=== PATIENT | female | born 1950 | race Caucasian/White ===

== ENCOUNTER 2019-07-25 01:03 | Outpatient (CLI) | payer MEDICARE, SELFPAY ==
--- NOTE | 2019-07-25 07:45 | DI.MAMMO_ITS ---
EXAM: MAMMO SCREENING CLINICAL HISTORY: Screening, Z12.39. TECHNIQUE: Mammograms were interpreted according to the usual protocol including computer analysis with CAD system, tomosynthesis and C-view imaging. COMPARISON: June 2017 FINDINGS: The breasts are of moderate density with fairly symmetrical distribution of fibroglandular tissue. No dominant mass or clumped microcalcification is identified in either breast. Current examination is c ompared with previous examinations including June 2017 and there has been no gross interval soto ge in appearance comparison with previous studies. IMPRESSION: No specific evidence of malignancy at this time. Routine screening examinations are suggested at year ly intervals due to the family history of breast carcinoma, category 1, breast density category B. BI-RADS Cat 1 - Negative Breast Density - Category B - Scattered areas of fibroglandular density
[2019-07-25 09:05] LABS: ALT 18 U/L (14-59); AST 15 U/L (15-37); Albumin 3.5 g/dL (3.4-5.0); Alkaline Phosphatase 99 U/L (46-116); BUN 16 mg/dL (7-18); Bilirubin, Total 0.7 mg/dL (0.2-1.0); CREATININE 1.04 mg/dL (0.55-1.02); Calcium 8.9 mg/dL (8.5-10.1); Chloride 106 mmol/L (98-107); Estimated GFR 53.02 (mL/min/1.73m2); Glucose 101 mg/dL (70-100); Sodium 146 mmol/L (136-145); Total Protein 7.1 g/dL (6.4-8.2)
== END 2019-07-25 01:23 ==
DX: E03.9 Hypothyroidism, unspecified; E66.9 Obesity, unspecified; I10 Essential (primary) hypertension; M50.10 Cervical disc disorder with radiculopathy, unspecified cervical region; Z12.31 Encounter for screening mammogram for malignant neoplasm of breast; Z80.3 Family history of malignant neoplasm of breast
CPT/HCPCS: 36415; 77063; 77067; 80053

== ENCOUNTER 2020-06-23 04:21 | Outpatient (CLI) | payer MEDICARE, MEDICAID, SELFPAY ==
[2020-06-23 08:51] LABS: ALT 21 U/L (14-59); AST 11 U/L (15-37); Albumin 3.5 g/dL (3.4-5.0); Alkaline Phosphatase 90 U/L (46-116); Anion Gap 7.2 mmol/L (3-11); BUN 11 mg/dL (7-18); Bilirubin, Total 0.5 mg/dL (0.2-1.0); CO2 29.8 mmol/L (21.0-32.0); CREATININE 0.98 mg/dL (0.55-1.02); Calcium 8.9 mg/dL (8.5-10.1); Chloride 106 mmol/L (98-107); Estimated GFR 56.61 (mL/min/1.73m2); Glucose 93 mg/dL (74-106); Potassium 3.7 mmol/L (3.5-5.1); Sodium 143 mmol/L (136-145); Total Protein 6.9 g/dL (6.4-8.2)
== END 2020-06-23 04:41 ==
DX: I10 Essential (primary) hypertension (principal); I34.0 Nonrheumatic mitral (valve) insufficiency; E66.9 Obesity, unspecified
CPT/HCPCS: 36415; 80053

== ENCOUNTER → 2020-07-09 10:00 | Outpatient (BNVA) | payer MEDICARE, MEDICAID, SELFPAY | PROVIDERS: Visit Provider Student in an Organized Health Care Education/Training Program | DX: M17.12 Unilateral primary osteoarthritis, left knee (principal); M25.562 Pain in left knee; M25.561 Pain in right knee | CPT/HCPCS: 20610; 99203; 99214; J1040 ==

== ENCOUNTER 2021-04-06 13:00 | Outpatient (CLI) | payer OTHER, MEDICAID, SELFPAY ==
--- NOTE | 2021-04-06 10:00 | DI.RAD_ITS ---
Exam(s) XR KNEE LT 3V AP,LAT,LISA EXAM: XR KNEE LT 3V AP,LAT,LISA CLINICAL HISTORY: LT KNEE PAIN, M17.12-PRIMARY OSTEOARTHRITIS OF LT KNEE TECHNIQUE: COMPARISON: CR XR KNEE RT 3V AP,LAT,LISA from 04/06/2021 FINDINGS: Three views were obtained. There is severe narrowing of the medial tibiofemoral cartilaginous joint space. Otherwise the cartilaginous joint spaces appear fairly well maintained. There is a superior patellar enthesophyte. There are moderate hypertrophic marginal osteophytes of medial tibiofemoral j oint mild subchondral sclerosis of adjacent bones at the medial tibiofemoral joint. IMPRESSION: DJD predominantly involving medial tibiofemoral joint. RADIATION DOSE DELIVERED: Total DLP
--- NOTE | 2021-04-06 10:00 | DI.RAD_ITS ---
Exam(s) XR KNEE RT 3V AP,LAT,LISA EXAM: XR KNEE RT 3V AP,LAT,LISA CLINICAL HISTORY: RT KNEE PAIN, M25.561 TECHNIQUE: COMPARISON: CR XR KNEE LT 3V AP,LAT,LISA from 06/29/2020 FINDINGS: Three views were obtained. There is moderate narrowing of the medial tibiofemoral cartilaginous join t space. Lateral tibiofemoral cartilaginous joint space appears fairly well maintained. There are m oderate marginal osteophytes noted at the medial tibiofemoral joint and to a lesser degree at the oth er joints of the knee. No other abnormality seen. IMPRESSION: DJD predominantly involving medial tibiofemoral joint. RADIATION DOSE DELIVERED: Total DLP
== END 2021-04-06 13:20 ==
PROVIDERS: Visit Provider Nurse Practitioner
DX: M17.11 Unilateral primary osteoarthritis, right knee (principal); M17.12 Unilateral primary osteoarthritis, left knee
CPT/HCPCS: 73562

== ENCOUNTER → 2021-05-21 08:47 | Outpatient (BNVA) | payer OTHER, MEDICAID, SELFPAY | PROVIDERS: Referring Provider Nurse Practitioner; Visit Provider Student in an Organized Health Care Education/Training Program | DX: M25.561 Pain in right knee (principal); M23.91 Unspecified internal derangement of right knee; M17.11 Unilateral primary osteoarthritis, right knee | CPT/HCPCS: 20610; J1040 ==

== ENCOUNTER 2021-07-01 14:22 | Outpatient (REF) | payer OTHER, MEDICAID, SELFPAY ==
[2021-07-01 19:25] LABS: ALT 31 U/L (14-59); AST 15 U/L (15-37); Alkaline Phosphatase 107 U/L (46-116); Anion Gap 8.6 mmol/L (3-11); BUN 19 mg/dL (7-18); Bilirubin, Total 0.7 mg/dL (0.2-1.0); CO2 28.4 mmol/L (21.0-32.0); Calcium 9.7 mg/dL (8.5-10.1); Calculated LDL 103 mg/dL (<100); Chloride 107 mmol/L (98-107); Cholesterol 177 mg/dL (<200); Estimated GFR 55.14 (mL/min/1.73m2); Glucose 94 mg/dL (74-106); HDL Cholesterol 58 mg/dL (40-60); Potassium 4.4 mmol/L (3.5-5.1); Sodium 144 mmol/L (136-145); Total Protein 7.5 g/dL (6.4-8.2); Triglyceride 81 mg/dL (<150)
== END 2021-07-01 14:23 | disposition home or self-care (01) ==
LOC: LBN 14:22
DX: E78.5 Hyperlipidemia, unspecified; Z00.00 Encounter for general adult medical examination without abnormal findings
CPT/HCPCS: 80053; 80061

== ENCOUNTER 2022-02-14 01:08 | Outpatient (CLI) | payer MEDICARE, MEDICAID, SELFPAY ==
--- NOTE | 2022-02-14 07:45 | DI.MAMMO_ITS ---
Exam(s) MAMMO SCREENING EXAM: MAMMO SCREENING CLINICAL HISTORY: screening,z12.39 TECHNIQUE: Mammograms were interpreted according to the usual protocol including computer analysis w [employer]ite CAD system, tomosynthesis and C-view imaging. COMPARISON: 2012 through 2018 FINDINGS: The breasts are composed of scattered fibroglandular densities, Breast Density category B. No suspicious masses or suspicious microcalcifications are seen. No skin thickening or abnormal axillary lymph nodes are seen. There has been no significant change from prior exams. IMPRESSION: BI-RADS Category 1, Negative mammogram Yearly screening mammography is recommended. Breast Density - Category B, scattered fibroglandular densities. A negative radiographic report should not delay biopsy if a dominant or clinically suspicious mass is present. Up to ten percent of cancers are not identified on mammography. A negative report may reinforce clinical impression. Adenosis and dense breasts may obscure an underlying neoplasm. False positive reports average 6 to 10%. Patient will receive a letter notifying them of these results.
== END 2022-02-14 01:28 ==
DX: Z12.31 Encounter for screening mammogram for malignant neoplasm of breast (principal)
CPT/HCPCS: 77063; 77067

== ENCOUNTER 2022-02-14 02:10 | Outpatient (CLI) | payer MEDICARE, MEDICAID, SELFPAY ==
[2022-02-14 09:45] LABS: ALT 20 U/L (14-59); AST 15 U/L (15-37); Albumin 3.6 g/dL (3.4-5.0); Alkaline Phosphatase 101 U/L (46-116); Anion Gap 7.1 mmol/L (3-11); BUN 12 mg/dL (7-18); Bilirubin, Total 0.5 mg/dL (0.2-1.0); CO2 29.9 mmol/L (21.0-32.0); Calcium 8.8 mg/dL (8.5-10.1); Calculated LDL 120 mg/dL (<100); Chloride 106 mmol/L (98-107); Cholesterol 187 mg/dL (<200); Estimated GFR 54.97 (mL/min/1.73m2); Glucose 95 mg/dL (74-106); HDL Cholesterol 54 mg/dL (40-60); Sodium 143 mmol/L (136-145); Total Protein 7.2 g/dL (6.4-8.2); Triglyceride 65 mg/dL (<150)
== END 2022-02-14 02:11 | disposition home or self-care (01) ==
LOC: LBO 02:10
DX: I10 Essential (primary) hypertension (principal); E66.9 Obesity, unspecified; M79.605 Pain in left leg; Z00.00 Encounter for general adult medical examination without abnormal findings
CPT/HCPCS: 36415; 80053; 80061

== ENCOUNTER 2022-03-15 02:47 | Outpatient (CLI) | payer MEDICARE, MEDICAID, SELFPAY ==
[2022-03-15 12:15] LABS: TSH (W/Ref FT4) 1.83 uIU/mL (0.36-3.74)
== END 2022-03-15 02:48 | disposition home or self-care (01) ==
LOC: LBO 02:47
DX: G47.00 Insomnia, unspecified (principal)
CPT/HCPCS: 36415; 84443

== ENCOUNTER → 2023-06-05 03:59 | Outpatient (CLI) | payer MEDICARE, SELFPAY ==
--- NOTE | 2023-06-05 07:15 | DI.MAMMO_ITS ---
Exam(s) US BREAST RT LIMITED MG MAMMO DIAGNOSTIC BI EXAM: MG MAMMO DIAGNOSTIC unilateral and U/S breast RT limited CLINICAL HISTORY: new mass, right lateral 11:00,n64.59. TECHNIQUE: Craniocaudal and mediolateral oblique Full Field Digital Mammography views of the right b reast with Computer Aided Diagnosis followed by Tomosynthesis and right breast ultrasound. COMPARISON: Comparison is made with prior examinations. FINDINGS: Mammography/Tomosynthesis: Masses/Architectural Distortion: In the axillary region of the right breast there is a well-circumscr ibed 7 mm nodule present. This corresponds to the palpable abnormality. Microcalcifictions: No suspicious pleomorphic-type are seen. Skin Thickening/Nipple Retraction: None. Limited right breast US: Echotexture: Normal appearance of the glandular tissue. Shadowing: No suspicious foci. Cyst: 10 cm from the nipple at the 11 o'clock position of the axilla there is a well-circumscribed 1 x 0.2 by 0.6 cm cyst. This corresponds to the palpable abnormality and the mammographic abnormality. It is just beneath the skin surface and likely reflects a benign lesion such as a sebaceous cyst. Solid lesions: None seen. Ductal dilation: None. IMPRESSION: 1. No evidence of malignancy is noted. 2. Unless there is more urgent need, follow-up screening mammography is recommended, as per [employer] guidelines. 3. The findings were discussed with the patient on the date of the examination. BI-RADS Category 2 - Benign Findings Breast Density - Category B - Scattered areas of fibroglandular density Breast density Category C or D implies that the patient has dense breast tissue. Dense breast tissue can make it harder to find cancer on a mammogram. Dense breast tissue is also associated with an incr eased risk of breast cancer. This information about the result of the mammogram report was provided to the patient to raise their awareness. Use this report when you speak with the patient about their risks for breast cancer, which includes their family history. At that time, you may recommend additional screening tests (Ultrasoun d or MRI) as these tests may add significant information. A negative radiographic report should not delay biopsy if a dominant or clinically suspicious mass is present. Up to ten percent of cancers are not identified on mammography. A negative report may reinforce clinical impression. Adenosis and dense breasts may obscure an underlying neoplasm. False positive reports average 6 to 10%. Patient will receive a letter notifying them of these results.
== END ==
PROVIDERS: PCP Nurse Practitioner Family; Visit Provider Nurse Practitioner Family
DX: N64.59 Other signs and symptoms in breast (principal); Z12.31 Encounter for screening mammogram for malignant neoplasm of breast; N63.11 Unspecified lump in the right breast, upper outer quadrant
CPT/HCPCS: 76642; 77062; 77066; G0279

== ENCOUNTER 2023-07-07 01:51 | Outpatient (CLI) | payer MEDICARE, SELFPAY ==
[2023-07-07 11:21] LABS: Anion Gap 8.7 mmol/L (3-11); BUN 13 mg/dL (7-18); CO2 27.3 mmol/L (21.0-32.0); CREATININE 1.1 mg/dL (0.55-1.02); Calcium 9.7 mg/dL (8.5-10.1); Chloride 105 mmol/L (98-107); Estimated GFR 54.06 (mL/min/1.73m2); Glucose 98 mg/dL (74-106); Potassium 3.8 mmol/L (3.5-5.1); Sodium 141 mmol/L (136-145)
== END 2023-07-07 01:52 | disposition home or self-care (01) ==
LOC: LBO 01:51
PROVIDERS: PCP Nurse Practitioner Family; Visit Provider Nurse Practitioner Family
DX: I10 Essential (primary) hypertension (principal)
CPT/HCPCS: 36415; 80048

== ENCOUNTER → 2024-03-21 10:09 | Outpatient (BNVA) | payer MEDICARE, SELFPAY | PROVIDERS: PCP Nurse Practitioner Family; Referring Provider Nurse Practitioner Family; Visit Provider Physical Therapy Assistant | DX: Z12.11 Encounter for screening for malignant neoplasm of colon (principal); Z86.010 Personal history of colon polyps ==

== ENCOUNTER 2024-04-01 09:37 | Day surgery (SDC) | payer MEDICARE, SELFPAY ==
--- NOTE | 2024-03-31 18:55 | PDOC.DSDIS_ITS ---
Date of service: 04/01/24 Time of Service: 12:00 Discharge Plan Disposition Patient Disposition: Home Condition: Good Discharge Details Reason For Visit: screening colonoscopy Attending Provider: Christopher Barrera Primary Care Provider: Moshe Yadav Home Meds and New Rx's Prescriptions: Continued turmeric root extract 500 mg capsule 500 mg PO DAILY amlodipine 5 mg tablet 5 mg PO DAILY Qty: 90 4RF diclofenac sodium 75 mg tablet,delayed release (DR/EC) 75 mg PO BID Qty: 180 4RF metoprolol succinate 25 mg tablet extended release 24 hr 25 mg PO DAILY Qty: 90 4RF spironolactone 25 mg tablet 12.5 mg PO DAILY Qty: 90 4RF Rx Instructions: Take 12.5mg in the AM cetirizine [Allergy Relief (cetirizine)] 5 mg tablet 5 mg PO DAILY PRN (Reason: allergy symptoms) Qty: 60 0RF fluticasone propionate [Allergy Relief (fluticasone)] 50 mcg/actuation spray,suspension 1 spray intranasal BID PRN (Reason: allergy symptoms) Qty: 16 0RF Rx Instructions: administer into each nostril thiamine HCl (vitamin B1) 100 mg tablet 100 mg PO DAILY Adult 50 Plus Probiotic 4 billion cell capsule 4,000 mmu cells PO DAILY Rx Instructions: administer with a meal multivitamin 1 EACH tablet 1 tab PO DAILY cholecalciferol (vitamin D3) [Vitamin D3] 400 UNIT tablet 1 tab PO DAILY MSM Glucosamine Complex 1 EACH tablet 1 - 2 tab PO WEEKLY Os-Won 500 + D3 1 EACH tablet,chewable 1 tab PO DAILY lysine 500 MG tablet 500 mg PO DAILY PRN aspirin [Aspir-81] 81 MG tablet,delayed release (DR/EC) 81 mg PO DAILY cholestyramine (with sugar) 4 gram powder in packet 4 g PO DAILY Qty: 90 2RF Hold Instructions: Formulary/Insurance Discontinued bisacodyl [Dulcolax (bisacodyl)] 5 mg tablet,delayed release (DR/EC) 5 mg PO ONCE Qty: 4 0RF Rx Instructions: Take per colonoscopy instructions provided by ordering providers office polyethylene glycol 3350 17 gram/dose powder 17 g PO ONCE Qty: 238 0RF Rx Instructions: Take per colonoscopy instructions provided by ordering providers office Discharge Instructions Instructions: Diverticulosis, High-fiber diet Additional Instructions: Amanda, we were able to complete your colonoscopy today without any difficulty. Your prep was excellent and I could see everything fine. I did not see any signs of any tumors or polyps. He do have a fair amount of diverticulosis. And some mild inflammatory changes that seem consistent with diverticular disease. I suspect that intermittent inflammation is what causes your GI symptoms, and I suspect that diverticulosis is probably the root cause. Because of the polyps that you had removed previously, I would still recommend a 5-year interval for your next colonoscopy. If you have any questions in the meantime, please do not hesitate to ask. 1. If tolerated, consume a soft, low fiber diet for 1-2 days. 2[address] Do not drive, drink alcohol, operate machinery, make critical decisions, or do activities that require coordination or balance for 24 hours. 3. Because air was put into your colon during the procedure, expelling air from your rectum (passing gas or farting) is normal. 4. You may not have a bowel movement for 1-3 days because of the colonoscopy prep. This is normal. 5. Go directly to the emergency room if you notice any of the following: Develop chills (warm to touch), or if you have a thermometer and your temperature is above 101 Difficulty breathing or difficultly swallowing Persistent vomiting Severe abdominal pain, other than gas cramps Severe chest pain Black, tarry stools Any bleeding ? exceeding one tablespoon 6. Call your physician if the site where your intravenous was started becomes red, swollen, painful, and warm to touch. 7. Your physician has reviewed your pre-procedure medications. Please continue to take those medications as previously ordered. You will be given specific information/education regarding any changes to your medications before leaving. Activity:: Activity as Tolerated Diet:: As Tolerated Discharge Orders Discharge Orders: Discharge Order (Routine); Ordered 03/31/24 Ordered By: Christopher Barrera DS: Diagnosis Discharge Diagnosis (1) Encounter for screening colonoscopy: Status: Acute Asessment and Plan: Negative screening colonoscopy today; based on history of polyps, recommend a 5- year interval for the next colonoscopy.
--- NOTE | 2024-03-31 18:58 | W.COLOREPORT ---
Date of service: 04/01/24 Time of Service: 12:01 Colonoscopy Report Date of procedure: 04/01/24 Pre-op diagnosis general: screening colonoscopy Post-op diagnosis procedure note: other (Diverticulosis) Procedure: colonoscopy Surgeon: Christopher Barrera Anesthesia Type: General:No Airway Estimated blood loss (mL): 0 Pathology: none sent Complications: None Disposition: same day Indications: Amanda is a 73 year old woman who needs a screening colonoscopy Prep: Miralax/Dulcolax Procedure Start Time: 11:34 Procedure End Time: 11:49 Retraction Time: 9 Findings: Pandiverticulosis Procedure Description: After the induction of monitored anesthesia, and with the patient in left lateral decubitus position, I began by performing an external anorectal exam.? Perineum and skin were normal, as was the anal verge.? There was no evidence of external hemorrhoids.? Next, I performed a digital rectal exam.? I did not appreciate any abnormal findings.? Next, I advanced a colonoscope into the rectal vault.? I performed retroflexion.? This was normal.? Using insufflation, I then advanced the colonoscope beyond the rectal folds and into the sigmoid colon before advancing towards the cecum.? The quality of the prep was adequate.? The scope was noted to be in the cecum by identification of the ileocecal valve and appendiceal orifice.? I then began withdrawing the colonoscope using repeated irrigation as necessary for full evaluation of the colonic mucosa. There is diverticulosis in all segments of the colon. There is a few areas of very mild inflammation within the sigmoid diverticular segment. Once the scope was withdrawn to the level of the rectum, great care was taken to examine portions of the rectal folds.? Finally, the scope was withdrawn and the patient was brought to the same-day surgery recovery unit as the anesthetic wore off. ?The findings and instructions were shared with the patient prior to discharge. [place] Bowel Prep [place] Bowel Prep Right Colon: 2 Left Colon: 3 Transverse Colon: 3 Total Score: 8
[2024-04-01 09:58] VITALS: BP 143/83; PULSE 67; RESP 16; TEMP 36.6; O2SAT 99
[2024-04-01] MEDS: Lactated Ringers 1,000 ML 80 ML IV (10:08)
[2024-04-01 11:11] VITALS: BMI 36.7
--- NOTE | 2024-04-01 11:11 | W.ANESPRE ---
General Info Date of Service Date Performed: 04/01/24 Height: 5 ft 2.5 in Weight: 92.5 kg Body Mass Index (BMI): 36.7 Surgical Procedure: Operation Date: 04/01/24 11:50 Proposed Procedure Side Surgeon erin Barrera MD Meds Allergies and Home Medications Allergies Allergy/AdvReac Type Severity Reaction Status Date / Time losartan AdvReac Intermediate Muscle Verified 04/01/24 09:56 Cramps Home Medication Medication Instructions Recorded calcium carbonate-vitamin D3 500 1 tab PO DAILY 02/15/13 mg(1,250 mg)-600 unit chewable tablet (Os-Won 500 + D3) cholecalciferol (vitamin D3) 10 1 tab PO DAILY 02/15/13 mcg (400 unit) tablet (Vitamin D3) [id number] 500 1 - 2 tab PO WEEKLY 02/15/13 mg-333.3 mg tablet (MSM Glucosamine Complex) multivitamin 1 tab PO DAILY 02/15/13 lysine 500 mg tablet 500 mg PO DAILY PRN 11/11/13 aspirin 81 mg tablet,delayed 81 mg PO DAILY 03/23/15 release (Aspir-) thiamine HCl (vitamin B1) 100 mg 100 mg PO DAILY 06/26/19 tablet lactobacillus combination no.9 4 4,000 mmu cells PO DAILY 04/21/20 billion cell capsule (Adult 50 Plus Probiotic) turmeric root extract 500 mg 500 mg PO DAILY 04/06/21 capsule cholestyramine (with sugar) 4 gram 4 g PO DAILY #90 ea 09/07/22 powder for susp in a packet amlodipine 5 mg tablet 5 mg PO DAILY #90 tabs 02/26/24 cetirizine 5 mg tablet (Allergy 5 mg PO DAILY PRN allergy symptoms 02/26/24 Relief (cetirizine)) #60 tabs diclofenac sodium 75 mg 75 mg PO BID #180 tabs 02/26/24 tablet,delayed release fluticasone propionate 50 1 spray intranasal BID PRN allergy 02/26/24 mcg/actuation nasal symptoms #16 grams spray,suspension (Allergy Relief (fluticasone)) metoprolol succinate 25 mg 25 mg PO DAILY #90 tabs 02/26/24 tablet,extended release 24 hr spironolactone 25 mg tablet 12.5 mg (1/2 x 25 mg) PO DAILY #90 02/26/24 tabs Current Visit Medications: Current Medications Generic Name Dose Route Start Last Admin Trade Name Freq PRN Reason Stop Dose Admin Hyoscyamine Sulfate 0.125 mg 03/31/24 19:00 Hyoscyamine 0.125 Mg Sl/Oral/Chew SL 04/30/24 18:59 DIRECTED PRN Ringer's Solution 1,000 mls @ 80 mls/hr 04/01/24 06:00 04/01/24 10:08 IV 04/28/24 23:59 80 mls/hr INFUSION TYRELL Administration IV Miscellaneous Supplies 1 each 04/01/24 06:00 Iv Access IV 04/28/24 23:59 DIRECTED TYRELL Ondansetron HCl 4 mg 03/31/24 19:00 Ondansetron 4 Mg/2 Ml Vial IVP 04/30/24 18:59 Q4H PRN PRN Nausea / Vomiting Sodium Chloride 0 ml 04/01/24 06:00 Normal Saline Flush 10 Ml Syr IV 04/28/24 23:59 PRN PRN Sodium Chloride 0 ml 04/01/24 06:00 Normal Saline 10 Ml Vial IJ 04/28/24 23:59 DIRECTED PRN Sterile Water 0 ml 04/01/24 06:00 Water,Injection,Sterile 10 Ml Vial IJ 04/28/24 23:59 DIRECTED PRN PFSH Active Problems Active Problems: Problem Status Onset Code Encounter for screening colonoscopy Z12.11 Seborrheic keratoses L82.1 Breast mass, right N63.10 Tennis elbow M77.10 Hearing difficulty of both ears H91.93 Hair loss L65.9 COVID-19 ~12/06/21 U07.1 Vaginal lesion N89.8 Hyperlipidemia E78.5 Osteoarthritis of right knee M17.11 Internal derangement of right knee M23.91 Osteoarthritis of left knee M17.12 Lactose intolerance E73.9 Polyp of colon 07/06/12 K63.5 Sebaceous cyst L72.3 Acute pain of left lower extremity M79.605 Varicose veins of lower extremity I83.90 Sigmoid diverticulitis K57.32 Obesity (BMI 30-39.9) E66.9 Mitral valvular regurgitation 05/01/14 I34.0 Hypertension I10 Generalized abdominal discomfort 05/17/18 R10.84 Diverticulosis 07/31/17 K57.90 Cervical disc prolapse with radiculopathy 04/10/12 M50.10 Medical History Medical History Chest pain (04/10/12) Closed fracture of foot Diarrhea (05/17/18) Fracture of fibula HPV test positive (05/15/14) pap neg History of stress test Abnormal mammography Mantoux: positive UC (ulcerative colitis) Mitral valve regurgitation Surgical History Surgical History History of bilateral ligation of fallopian tubes Ligation of fallopian tube PROCEDURES MRI SPINAL CANAL, 03/27 CERVICAL RADICULAOPATHY AND HERNIATED DISC CARDIAC STRESS TEST NEC, 04/02/12 NEGATIVE FOR ISCHEMIA (SEE [place] REPORT) Colonoscopy - MAC (07/31/17) Cholecystectomy Arthroscopy shoulder Tobacco Smoking/Tobacco Use Status: Never Passive smoking exposure: Yes Second hand exposure: Yes Alcohol Alcohol Intake: current Alcohol intake frequency: holidays/special occasions only Alcohol type: beer and wine Substance Use Substance use: Never Substance use type: does not use Counseling provided: none Vital Signs and Lab Results Vital Signs Most Recent Vital Signs in EMR: Most Recent Vital Signs Temp Pulse Resp BP Pulse Ox 36.6 C 67 16 143/83 H 99 04/01/24 09:58 04/01/24 09:58 04/01/24 09:58 04/01/24 09:58 04/01/24 09:58 Lab Results Blood Type / Crossmatch: No Data to Display Complete Blood Count: No Data to Display Complete Metabolic Panel: No Data to Display Liver Function Panel: No Data to Display Coagulation Panel: No Data to Display Cardiac Panel: No Data to Display Arterial Blood Gas: No Data to Display Venous Blood Gas: No Data to Display Pancreas Panel: No Data to Display Thyroid Panel: No Data to Display Infectious Disease: No Data to Display Blood Cultures: No Data to Display Toxicology Panel: No Data to Display Anesthesia Assessment and Plan Anesthesia History Personal History: No History of Anesthesia Complications Family History: No Family History of Anesthesia Complications Exercise Tolerance Exercise Tolerance: Metabolic Equivalents>4 Pertinent Negatives Pertinent Negatives: No Symptoms of GERD Cardiac & Pulmonary Exam Cardiac Exam: Normal S1/S2 Heart Sounds Pulmonary Exam: Clear Bilateral Breath Sounds Implantable Cardiac Device Does patient have a Pacemaker or an ICD?: No Airway Exam Known Difficult Airway: No Mallampati Class: 2 Mouth Opening: Normal (> 3cm) Thyromental Distance: Greater than 3 cm Neck Range of Motion: Full ROM Neck Circumference: Normal Teeth Condition: Normal Dentition ASA Classification ASA Score: ASA 2 Emergency Case?: No NPO Status NPO Status: NPO Clears >2 hours, Solids >8 hours Anesthesia Plan Resuscitation Status: Full Code Anesthesia Technique: General Anesthesia Airway Planned: Natural Airway Monitors Used: Standard Monitors
[2024-04-01 11:57] VITALS: BP 114/74; PULSE 64; RESP 16; TEMP 36.3; O2SAT 96
--- NOTE | 2024-04-01 12:00 | W.ANESPOSTOP ---
Postoperative Evaluation Date, Time and Location Date Performed: 04/01/24 Time Performed: 12:01 Patient Location: Day Surgery Unit Vital Signs Most Recent Imported Vital Signs: Most Recent Vital Signs Temp Pulse Resp BP Pulse Ox 36.6 C 67 16 143/83 H 99 04/01/24 09:58 04/01/24 09:58 04/01/24 09:58 04/01/24 09:58 04/01/24 09:58 Pain Score Most Recent Pain Score: Most Recent Pain Score Pain Level 0 04/01/24 09:58 Assessment Mental Status: Awake (Alert & Oriented to Patient Baseline) Airway and Respiratory Function: Patent airway with normal (patient baseline) respiratory exam Cardiovascular Function: Hemodynamically Stable Hydration Status: Adequately Hydrated Nausea & Vomiting: No Nausea or Vomiting Pain: Pt. Denies Any Pain Peripheral Nerve Block: Patient did not receive a nerve block
[2024-04-01 12:27] VITALS: BP 133/80; PULSE 60; RESP 16; TEMP 36; O2SAT 98
== END 2024-04-01 13:15 | disposition home or self-care (01) ==
LOC: SUR 09:40
PROVIDERS: PCP Nurse Practitioner Family; Visit Provider Surgery
PROC: 0DJD8ZZ Inspection of Lower Intestinal Tract, Via Natural or Artificial Opening Endoscopic (ICD-10-PCS; CPT 45378; principal; 2024-04-01 11:45)
DX: Z12.11 Encounter for screening for malignant neoplasm of colon (principal); K57.30 Diverticulosis of large intestine without perforation or abscess without bleeding
CPT/HCPCS: G0105; J2001; J2704

== ENCOUNTER 2024-04-24 10:20 | Emergency (ER) | payer MEDICARE, SELFPAY ==
[2024-04-24 10:42] VITALS: BP 194/92; PULSE 68; RESP 16; TEMP 37.1; O2SAT 98
--- NOTE | 2024-04-24 11:01 | ED.GENADUL_ITS ---
Discharge Plan Disposition Patient Disposition: Home Condition: Good Discharge Details Clinical Impression: Pain, dental, Dental infection Primary Care Provider: Moshe Yadav ED Provider: Nandini Kilpatrick Home Meds and New Rx's Prescriptions: New penicillin V potassium 500 mg tablet 500 mg PO QID 7 Days Qty: 28 0RF Continued turmeric root extract 500 mg capsule 500 mg PO DAILY amlodipine 5 mg tablet 5 mg PO DAILY Qty: 90 4RF diclofenac sodium 75 mg tablet,delayed release (DR/EC) 75 mg PO BID Qty: 180 4RF metoprolol succinate 25 mg tablet extended release 24 hr 25 mg PO DAILY Qty: 90 4RF spironolactone 25 mg tablet 12.5 mg PO DAILY Qty: 90 4RF Rx Instructions: Take 12.5mg in the AM cetirizine [Allergy Relief (cetirizine)] 5 mg tablet 5 mg PO DAILY PRN (Reason: allergy symptoms) Qty: 60 0RF fluticasone propionate [Allergy Relief (fluticasone)] 50 mcg/actuation spray,suspension 1 spray intranasal BID PRN (Reason: allergy symptoms) Qty: 16 0RF Rx Instructions: administer into each nostril thiamine HCl (vitamin B1) 100 mg tablet 100 mg PO DAILY multivitamin 1 EACH tablet 1 tab PO DAILY cholecalciferol (vitamin D3) [Vitamin D3] 400 UNIT tablet 1 tab PO DAILY MSM Glucosamine Complex 1 EACH tablet 1 - 2 tab PO WEEKLY Os-Won 500 + D3 1 EACH tablet,chewable 1 tab PO DAILY lysine 500 MG tablet 500 mg PO DAILY PRN aspirin [Aspir-81] 81 MG tablet,delayed release (DR/EC) 81 mg PO DAILY cholestyramine (with sugar) 4 gram powder in packet 4 g PO DAILY Qty: 90 2RF Hold Instructions: Formulary/Insurance Discharge Instructions Instructions: Dental Pain ED Additional Instructions: Also discussed, I am concerned that you may have overriding infection in the tooth noted to have chronic issues. Please continue to encourage hydration. Tylenol and ibuprofen as needed for discomfort. Please take as directed on packaging. You may continue the Orajel. Please take the antibiotics as prescribed. Even if symptoms improve, please take the entire course. You will need definitive care with a dentist, attached is a list of local dentist. Please continue to call to ensure close follow-up, soon as possible. If you develop any swelling, inability to swallow or difficulty swallow, fevers or other new/worsening symptoms please seek care urgently once again. Referrals: Moshe Yadav NP [Primary Care Provider] - Discharge Data Discharge Date/Time-TO BE ENTERED AT DEPARTURE: 04/24/24 12:23 HPI General Date/Time Provider Initiated Documentation: 04/24/24 11:01 . Limitations to Documentation: no limitations . Information obtained by: patient and RN notes reviewed . History of Present Illness 73 year old F presents to the emergency department with the chief complaint of right lower posterior dental pain, described as severe, and is localized to the mouth. Patient reports no radiation. Patient started experiencing this week(s) and it has been constant. No relieving factors improve symptom(s), Eating worsens symptoms . Patient notes denies chest pain, fever/chills, headaches, loss of appetite and nausea/vomiting. Patient did receive the following treatments prior to arrival, none Related Data Home Medications Medication Instructions Recorded Confirmed calcium carbonate-vitamin D3 500 1 tab PO DAILY 02/15/13 04/24/24 mg(1,250 mg)-600 unit chewable tablet (Os-Won 500 + D3) cholecalciferol (vitamin D3) 10 1 tab PO DAILY 02/15/13 04/24/24 mcg (400 unit) tablet (Vitamin D3) uvstih-nmg-F-Gk-cbrrxh-iyvfew 500 1 - 2 tab PO WEEKLY 02/15/13 04/24/24 mg-333.3 mg tablet (MSM Glucosamine Complex) multivitamin 1 tab PO DAILY 02/15/13 04/24/24 lysine 500 mg tablet 500 mg PO DAILY PRN 11/11/13 04/24/24 aspirin 81 mg tablet,delayed 81 mg PO DAILY 03/23/15 04/24/24 release (Aspir-) thiamine HCl (vitamin B1) 100 mg 100 mg PO DAILY 06/26/19 04/24/24 tablet turmeric root extract 500 mg 500 mg PO DAILY 04/06/21 04/24/24 capsule cholestyramine (with sugar) 4 gram 4 g PO DAILY #90 ea 09/07/22 04/24/24 powder for susp in a packet amlodipine 5 mg tablet 5 mg PO DAILY #90 tabs 02/26/24 04/24/24 cetirizine 5 mg tablet (Allergy 5 mg PO DAILY PRN allergy symptoms 02/26/24 04/24/24 Relief (cetirizine)) #60 tabs diclofenac sodium 75 mg 75 mg PO BID #180 tabs 02/26/24 04/24/24 tablet,delayed release fluticasone propionate 50 1 spray intranasal BID PRN allergy 02/26/24 04/24/24 mcg/actuation nasal symptoms #16 grams spray,suspension (Allergy Relief (fluticasone)) metoprolol succinate 25 mg 25 mg PO DAILY #90 tabs 02/26/24 04/24/24 tablet,extended release 24 hr spironolactone 25 mg tablet 12.5 mg (1/2 x 25 mg) PO DAILY #90 02/26/24 04/24/24 tabs penicillin V potassium 500 mg 500 mg PO QID 7 days #28 tabs 04/24/24 tablet Previous Rx's Medication Instructions Recorded cholestyramine (with sugar) 4 gram 4 g PO DAILY #90 ea 09/07/22 powder for susp in a packet amlodipine 5 mg tablet 5 mg PO DAILY #90 tabs 02/26/24 cetirizine 5 mg tablet (Allergy 5 mg PO DAILY PRN allergy symptoms 02/26/24 Relief (cetirizine)) #60 tabs diclofenac sodium 75 mg 75 mg PO BID #180 tabs 02/26/24 tablet,delayed release fluticasone propionate 50 1 spray intranasal BID PRN allergy 02/26/24 mcg/actuation nasal symptoms #16 grams spray,suspension (Allergy Relief (fluticasone)) metoprolol succinate 25 mg 25 mg PO DAILY #90 tabs 02/26/24 tablet,extended release 24 hr spironolactone 25 mg tablet 12.5 mg (1/2 x 25 mg) PO DAILY #90 02/26/24 tabs penicillin V potassium 500 mg 500 mg PO QID 7 days #28 tabs 04/24/24 tablet Allergies Allergy/AdvReac Type Severity Reaction Status Date / Time losartan AdvReac Intermediate Muscle Verified 04/24/24 10:46 Cramps General Stated Complaint: DentalOral MARLEY: 4 Review of Systems Constitutional Constitutional: Reports as per HPI, Denies chills, Denies fever(s), Denies headache(s) and Denies poor appetite Eyes Eyes: Denies change in vision and Denies irritation ENT Ears, Nose, Mouth, and Throat: Reports as per HPI, Reports dental pain, Denies dry mouth, Denies otalgia, Reports facial pain, Denies headache(s), Denies hoarseness, Denies nasal congestion and Denies sore throat Cardiovascular Cardiovascular: Reports as per HPI and Denies chest pain Respiratory Respiratory: Reports as per HPI and Denies cough Integumentary/Breasts Skin/Breast: Reports as per HPI, Denies erythema, Denies rash and Denies skin pain Neurologic Neurologic: Reports as per HPI and Denies headache(s) Exam Const General: cooperative, healthy appearing, comfortable, no acute distress, well developed and well groomed Nutritional Appearance: average body habitus and well nourished Orientation: alert and awake [facility] Head: normal to inspection, normocephalic and atraumatic Ears: hearing grossly normal bilaterally, external ears normal and TM's normal bilaterally General nose exam: external nose normal and nares normal Face and sinus: normal facial exam, sinuses nontender and face symmetric Mouth: oral mucosae normal, lip normal, tongue normal, oropharynx normal, moist mucous membranes, no audible dysphonia, no drooling, no muffled voice, no trismus and No restricted motion Teeth image: 2 1. area of pain. both the #32 and the #17 are tilted forward, have silver caps. Pain along lingual side with palpation. No fluctance, slight erythema. No swelling under jasvir tongue Throat: posterior oropharynx normal, tonsils normal and uvula midline Eyes General: appearance normal, both eyes and all related structures Neck Neck: normal visual inspection, full ROM, no lymphadenopathy, supple and no anterior neck swelling Resp Effort & Inspection: normal respiratory effort, able to speak in complete sentences and no respiratory distress Cardio Rate: regular rate Rhythm: regular rhythm Skin General skin exam: no rashes or lesions noted Trauma: no lacerations or abrasions Neuro General: patient alert and patient awake Cognition: normal cognition Speech: speech normal Gait: normal gait Course Vital Signs Vital signs: Vital Signs Temperature 37.1 C 04/24/24 10:42 Pulse 68 04/24/24 10:42 Respiratory Rate 16 04/24/24 10:42 Blood Pressure 194/92 H 04/24/24 10:42 Pulse Oximetry 98 04/24/24 10:42 Temperature 37.1 C 04/24/24 10:42 Pulse 68 04/24/24 10:42 Respiratory Rate 16 04/24/24 10:42 Blood Pressure 194/92 H 04/24/24 10:42 Pulse Oximetry 98 04/24/24 10:42 Oxygen Delivery Method Room Air 04/24/24 10:42 Oxygen Flow Rate 0 04/24/24 10:42 Pain Level 9 04/24/24 10:42 Medical Decision Making Patient is a pleasant 73-year-old female past medical history significant for mitral regurg, hypertension, presenting today with chief complaint of right lower dental pain. Patient reports that she has been having issues with her wisdom teeth and is trying to get these removed but is having difficulty scheduling appointment with a dentist. States that about a month ago she began having pain in the right lower wisdom tooth and this pain has been progressively increasing. She has not noted any swelling. No fevers or chills. No headaches or other systemic symptoms. She did find ibuprofen with no benefit last night and has been also using Orajel topically. On exam, patient appears nontoxic. Her wisdom teeth on the lower aspect are tipped upward at an atypical angle. She does have fillings over these teeth. She reports the teeth have become shifting after having some other teeth removed. She has pain along the lingual side but no appreciable swelling under the lingual area, no lymphadenopathy. Posterior oropharynx is normal with no uvular displacement, evidence of abscess. I do not see indication at this time for abscess, spreading mass in the neck, Yoan's however, given the patient's increasing pain, Considered infectious etiology and will treat with antibiotics. Will begin oral antibiotics. Also encourage close follow-up with dentist, advised she will need definitive care even if symptoms improve. Discussed strict return precautions. Encouraged supportive care. F/u with PCP regarding elevated BP. All of her questions and concerns were addressed, she is in agreement with this plan. Quality:SDOH Health Related Social Needs: 2 No Data to Display PFSH All Active Problems (Updated 04/24/24 @ 12:04 by MARINA Dejesus) Dental infection (Acute) Pain, dental (Acute) Encounter for screening colonoscopy (Acute) Seborrheic keratoses (Acute) Breast mass, right (Acute) Tennis elbow (Acute) Hearing difficulty of both ears (Acute) Hair loss (Acute) COVID-19 (Acute ~12/06/21) Vaginal lesion (Acute) Hyperlipidemia (Acute) Osteoarthritis of right knee (Acute) Internal derangement of right knee (Acute) Osteoarthritis of left knee (Acute) Lactose intolerance (Acute) Polyp of colon (Acute 07/06/12) DR. CLOTILDE CARDENAS; TUBULAR ADENOMA; repeat 2017 Sebaceous cyst (Acute) Upper back Acute pain of left lower extremity (Acute) Varicose veins of lower extremity (Acute) right LE Sigmoid diverticulitis (Acute) 04/25/14; DR. QUEVEDO Obesity (BMI 30-39.9) (Chronic) Mitral valvular regurgitation (Acute 05/01/14) mild, echo 2013 Hypertension (Acute) Generalized abdominal discomfort (Acute 05/17/18) Is followed by GI at [facility]. Currently taking Cholestyramine one half packet daily with improvement of her loose stools and urgency. She still finds she cannot tolerate certain foods (example....fried foods= loose stools; popcorn constipates). She is learning what her triggers are. She will f/u at [facility] on 07/09 before she leaves for [place]. I did suggest it would be OK to trial a full packet of Cholestyramine daily for a week or so prior to her visit so GI could evaluate impact before she leaves for the winter. Diverticulosis (Acute 07/31/17) Cervical disc prolapse with radiculopathy (Acute 04/10/12) MRI 03/2012. Increased discomfort on the right cervical area. History of herniated disc. 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 Plan to use topicals, ice/heat application and stretches. She will call for referral if she would like to go to PT. Continue Diclofenec. Medical History (Updated 04/24/24 @ 12:04 by MARINA Dejesus) Chest pain (04/10/12) Closed fracture of foot Diarrhea (05/17/18) Fracture of fibula HPV test positive (05/15/14) pap neg History of stress test Abnormal mammography Mantoux: positive UC (ulcerative colitis) Mitral valve regurgitation Surgical History (Updated 04/02/24 @ 08:16 by Latisha Jenkins) History of bilateral ligation of fallopian tubes Ligation of fallopian tube PROCEDURES MRI SPINAL CANAL, 03/27 CERVICAL RADICULAOPATHY AND HERNIATED DISC CARDIAC STRESS TEST NEC, 04/02/12 NEGATIVE FOR ISCHEMIA (SEE [facility] REPORT) Colonoscopy - MAC (03/2024) Cholecystectomy Arthroscopy shoulder Family History Mother Alcohol abuse Pancreatic cancer Father Essential hypertension Asthma Alcohol abuse Lung cancer Maternal Grandmother Breast cancer Sister , car accident at age 47. Depression Family History Crohns disease Hyperlipidemia Colitis COPD (chronic obstructive pulmonary disease) IBS (irritable bowel syndrome) Sister No problems noted. Brother No problems noted. Maternal Grandfather No problems noted. Paternal Grandfather No problems noted. Maternal Grandmother Breast cancer Paternal Grandmother No problems noted. 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[employer]) Pets and animals: Yes Pets and animals: dog(s) Do you think of yourself as: straight/heterosexual Current gender identity: female What is your relationship status?: living with partner How often do you talk on the phone with friends or family?: three or more times per week How often do you get together with friends or relatives?: twice per week How often do you attend latter day or jewish services?: decline to answer Do you belong to any clubs or organized social groups?: no Panel score (0-1 are the most socially isolated patients): 2 NHANES result reviewed/action taken: No What type of physical activity do you participate in: none Silva/Hindu: No preference Special silva needs: No Seatbelt use: always Drive intox or ride w/intox 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
[2024-04-24 12:22] VITALS: BP 190/86; BP 194/92; PULSE 68; RESP 16; TEMP 37.1; O2SAT 98
== END 2024-04-24 12:23 | disposition home or self-care (01) ==
PROVIDERS: Emergency Provider Physician Assistant; PCP Nurse Practitioner Family
DX: K08.89 Other specified disorders of teeth and supporting structures (principal); K04.7 Periapical abscess without sinus; I10 Essential (primary) hypertension; E78.5 Hyperlipidemia, unspecified; Z79.82 Long term (current) use of aspirin
CPT/HCPCS: 99283

== ENCOUNTER 2024-07-09 09:55 | Outpatient (CLI) | payer MEDICARE, SELFPAY ==
[2024-07-09 10:32] LABS: Anion Gap 7.6 mmol/L (3-11); BUN 19 mg/dL (7-18); CO2 28.4 mmol/L (21.0-32.0); CREATININE 1.1 mg/dL (0.55-1.02); Calcium 9.1 mg/dL (8.5-10.1); Chloride 104 mmol/L (98-107); Estimated GFR 53.72 (mL/min/1.73m2); Glucose 93 mg/dL (74-106); Sodium 140 mmol/L (136-145)
== END 2024-07-09 09:56 | disposition home or self-care (01) ==
LOC: LBO 09:56
PROVIDERS: PCP Nurse Practitioner Family; Visit Provider Nurse Practitioner Family
DX: I10 Essential (primary) hypertension (principal)
CPT/HCPCS: 36415; 80048

== ENCOUNTER 2024-07-12 00:57 | Outpatient (CLI) | payer MEDICARE, SELFPAY ==
--- NOTE | 2024-07-12 07:15 | DI.DEXA_ITS ---
Exam(s) XR DEXA BONE DENSITY W/WO TALIB EXAM: XR DEXA BONE DENSITY W/WO TALIB CLINICAL HISTORY: screening for osteoporosis IN POSTMENOPAUSAL WOMAN,Z78.0 TECHNIQUE: COMPARISON: DX DEXA BONE DENSITY WITH TALIB from 05/07/2012 FINDINGS: Lateral Spine Image: Unremarkable. No compression deformities identified. Left hip: Total T-Score: -0.9. This compares to -0.3 on the prior examination. Total Z-Score: 0.7 T- and Z-scores: Within normal limits. There is osteoporosis in the femoral neck with a T-score of -2 .5. Lumbar Spine: Total T-Score: -0.4. This compares to -0.4 on the prior examination. Total Z-Score: 1.8 T- and Z-scores: Within normal limits. IMPRESSION: Note is made of osteoporosis in the femoral neck with a T-score of -2.5.
--- NOTE | 2024-07-12 07:15 | DI.MAMMO_ITS ---
Exam(s) MAMMO SCREENING EXAM: MAMMO SCREENING CLINICAL HISTORY: screening,Z12.39 TECHNIQUE: Bilateral full field digital CC and MLO mammographic images were obtained with 3D tomosyn thesis and utilizing computer aided detection (CAD). COMPARISON: Available for comparison. FINDINGS: Masses/Architectural Distortion: There is a new 5 mm nodule in the central left breast 6.5 cm from th e nipple. No areas of architectural distortion are present. Microcalcifications: No suspicious pleomorphic-type are seen. Skin Thickening/Nipple Retraction: None. IMPRESSION: 1. New left breast nodule. 2. Further evaluation with a spot compression views requested. Limited left breast ultrasound may be indicated at that time. BI-RADS Category 0 - Incomplete: Need additional imaging evaluation Breast Density - Category B - Scattered areas of fibroglandular density Breast density category C or D implies that the patient has dense breast tissue. Dense breast tissue is very common and is not abnormal but dense breast tissue can make it harder to find cancer on a ma mmogram. Also, dense breast tissue may increase their breast cancer risk. This information about the result of the mammogram report was provided to the patient to raise their awareness. Use this report when you speak with the patient about their risks for breast cancer, which includes their family hist ory. At that time, you may recommend for more screening tests (Ultrasound or MRI) as they might be us eful based on their risk. A negative radiographic report should not delay biopsy if a dominant or clinically suspicious mass is present. Up to ten percent of cancers are not identified on mammography. A negative report may reinforce clinical impression. Adenosis and dense breasts may obscure an underlying neoplasm. False positive reports average 6 to 10%. Patient will receive a letter notifying them of these results.
--- NOTE | 2024-07-12 12:30 | DI.RAD_ITS ---
Exam(s) XR KNEE LT 3V AP,LAT,LISA EXAM: XR KNEE LT 3V AP,LAT,LISA CLINICAL HISTORY: persistent pain and swelling, M25.562. TECHNIQUE: 2D digital imaging was performed. COMPARISON: CR XR KNEE LT 3V AP,LAT,LISA from 04/06/2021 FINDINGS: 3 views No evidence of fracture nor obvious joint effusion. Again noted is avyy-of-nhuz degenerative narrowi ng of the medial compartment and large marginal osteophytes off the outer aspect of the medial compar tment are again noted. There is degenerative pointing of the tibial spines again noted. The lateral compartment continues to exhibit normal height. Some degenerative change also noted in the patellof emoral compartment. On the lateral view there is a 5 x 4 mm calcific density noted just above the anterior aspect of the tibial plateau. This either represents a loose intra-articular body or intra-articular osteophyte. Another calcified loose bodies seen posteriorly. Bone density is normal. No significant osseous lesions. IMPRESSION: Advanced osteoarthritic degenerative changes, most evident again in the medial compartment. There appear to be calcified loose bodies anteriorly and posteriorly in the joint. DATA REPOSITORY: RADIATION DOSE DELIVERED:
== END 2024-07-12 01:17 ==
PROVIDERS: PCP Nurse Practitioner Family; Visit Provider Nurse Practitioner Family
DX: Z78.0 Asymptomatic menopausal state (principal); Z12.31 Encounter for screening mammogram for malignant neoplasm of breast; M17.0 Bilateral primary osteoarthritis of knee; Z13.820 Encounter for screening for osteoporosis
CPT/HCPCS: 73562; 77063; 77067; 77080

== ENCOUNTER 2024-07-16 02:16 | Outpatient (CLI) | payer MEDICARE, SELFPAY ==
--- NOTE | 2024-07-16 | DI.US_ITS ---
Exam(s) MG MAMMO SCREEN CALL BACK UNI US BREAST LT LIMITED EXAM: MG MAMMO SCREEN CALL BACK UNI CLINICAL HISTORY: F/U MAMMO,NEW LT BREAST NODULE, R92.8. TECHNIQUE: Craniocaudal and mediolateral oblique spot compression digital Mammography views of the l eftbreast with Tomosynthesis and left breast ultrasound. COMPARISON: MG MG MAMMO SCREENING from 07/12/2024 US US BREAST LT LIMITED from 07/16/2024 and exams back to 2014. FINDINGS: Mammography/Tomosynthesis: Masses: Circumscribed nodule in the central left breast persists. Architectural Distortion: None seen. Microcalcifictions: No suspicious pleomorphic-type are seen. Skin Thickening/Nipple Retraction: None. Left breast US: Echotexture: Normal appearance of the glandular tissue. Shadowing: No suspicious foci. Cyst: 5 x 3 x 5 millimeter cyst 4 o'clock position 3 cm from the nipple. This corresponds to the em mographic abnormality. Solid lesions: None seen. Ductal dilation: None. IMPRESSION: 1. No evidence of malignancy is noted. 2. Unless there is more urgent need, follow-up screening mammography is recommended, as per [place] [employer] guidelines. 3. The findings were discussed with the patient on the date of the examination. BI-RADS Category 2 - Benign Findings Breast Density - Category B - Scattered areas of fibroglandular density A mammogram that demonstrates density of C or D indicates the patient's breast tissue is dense. Dense breast tissue is very common and is not abnormal, but dense breast tissue can make it harder to find cancer on a mammogram. Also, dense breast tissue may increase their breast cancer risk. This informa tion about the result of the mammogram report was provided to the patient to raise their awareness. U se this report when you speak with the patient about their risks for breast cancer, which includes th eir family history. At that time, you may recommend for more screening tests (Ultrasound or MRI) as t hey might be useful based on their risk. A negative radiographic report should not delay biopsy if a dominant or clinically suspicious mass is present. Up to ten percent of cancers are not identified on mammography. A negative report may reinforce clinical impression. Adenosis and dense breasts may obscure an underlying neoplasm. False positive reports average 6 to 10%. Patient will receive a letter notifying them of these results.
== END 2024-07-16 02:36 ==
LOC: DI 02:16
PROVIDERS: PCP Nurse Practitioner Family; Visit Provider Nurse Practitioner Family
DX: R92.8 Other abnormal and inconclusive findings on diagnostic imaging of breast (principal); Z12.31 Encounter for screening mammogram for malignant neoplasm of breast
CPT/HCPCS: 76642; 77063; 77067

== ENCOUNTER 2025-04-19 11:24 | Outpatient (CLI) | payer MEDICARE, SELFPAY ==
--- NOTE | 2025-04-19 11:15 | RT.EKG_ITS ---
APPROVED REPORT Exam: Resting ECG Reason for Exam: ? Patient Location: O HR:60 bpm ECG Measurements Heart Rate 60 AXIS IA 160 P 55 QRSd 100 QRS 12 QT 415 T 48 QTc 415 Conclusion Sinus rhythm...normal P axis, V-rate 50- 99 Borderline T abnormalities, anterior leads...T flat or neg, V2-V4
== END 2025-04-19 11:25 | disposition home or self-care (01) ==
LOC: DI.CM 11:26
PROVIDERS: PCP Nurse Practitioner Family; Visit Provider Nurse Practitioner Family
DX: M79.602 Pain in left arm (principal)
CPT/HCPCS: 93010

== ENCOUNTER 2025-07-02 02:09 | Outpatient (CLI) | payer MEDICARE, SELFPAY ==
[2025-07-02 09:08] LABS: Anion Gap 10.6 mmol/L (3-11); BUN 11 mg/dL (7-18); CO2 29.4 mmol/L (21.0-32.0); Calcium 9.7 mg/dL (8.5-10.1); Chloride 104 mmol/L (98-107); Estimated GFR 48.09 (mL/min/1.73m2); Glucose 102 mg/dL (74-106); Potassium 3.6 mmol/L (3.5-5.1); Sodium 144 mmol/L (136-145)
== END 2025-07-02 02:10 | disposition home or self-care (01) ==
LOC: LBO 02:09
PROVIDERS: PCP Nurse Practitioner Family; Visit Provider Nurse Practitioner Family
DX: I10 Essential (primary) hypertension (principal)
CPT/HCPCS: 36415; 80048